=== PATIENT | female | born 1970 | race Caucasian/White ===

== ENCOUNTER 2017-05-17 11:14 | Inpatient (IN) | payer BC ==
[2017-05-17] VITALS (14 sets, daily range): BP systolic 73–125; BP diastolic 46–75
[~2017-05-17] VITALS: Ht 170.2 cm; Wt 64.0 kg
[2017-05-17 11:49] LABS: HEMATOCRIT 43.3 % (37.0-47.0); HEMOGLOBIN 14.4 gm/dL (12.0-15.0); MCH 29.1 pg (26.0-34.0); MCHC 33.2 g/dL (28.0-37.0); MCV 87.5 fL (80.0-100.0); RBC 4.95 mil/uL (4.20-5.00); RDW 13.6 % (10.5-14.5); WBC 6.1 thou/uL (4.0-11.0)
[2017-05-17 11:58] LABS: ANION GAP 7 mmol/L (7-16); BUN 15 mg/dL (7-18); CALCIUM 9.2 mg/dL (8.5-10.1); CHLORIDE 102 mmol/L (98-107); CO2 28 mmol/L (21-32); CREATININE 0.8 mg/dL (0.6-1.0); GLUCOSE 108 mg/dL (74-106); POTASSIUM 4.3 mmol/L (3.5-5.1); SALICYLATE < 2.8 mg/dL (2.8-20.0); SODIUM 137 mmol/L (136-145)
[2017-05-17 13:01] LABS: URINE BILIRUBIN NEGATIVE (Negative); URINE BLOOD NEGATIVE (Negative); URINE COLOR YELLOW; URINE GLUCOSE-RANDOM* NEGATIVE (Negative); URINE KETONES NEGATIVE (Negative); URINE LEUKOCYTES-REFLEX 1+ (Negative); URINE PROTEIN (DIPSTICK) NEGATIVE (Negative); URINE SPECIFIC GRAVITY <= 1.005 (1.003-1.035); URINE UROBILINOGEN 0.2 E.U./dl (0.2-1.0)
[2017-05-17 13:09] LABS: AMP/METHAMP Negative (Negative); BARBITURATES Negative (Negative); BENZODIAZEPINES POSITIVE (Negative); COCAINE Negative (Negative); METHADONE Negative (Negative); OPIATES Negative (Negative); PCP Negative (Negative); THC Negative (Negative)
[2017-05-17 13:21] LABS: SQUAMOUS 0-3 Few /LPF (0-3)
[2017-05-17 13:22] LABS: CASTS None Seen /LPF (None Seen); CRYSTALS None Seen /LPF (None Seen); URINE RBC 0-2 Rare /HPF (0-2); URINE WBC-REFLEX None Seen /HPF (0-5)
[2017-05-18] VITALS (20 sets, daily range): BP systolic 86–130; BP diastolic 47–89
[2017-05-18] MEDS ORDERED: CYMBALTA60 MG PO (07:35)
[2017-05-18] MEDS ORDERED: LAMICTAL100 MG PO ×2 (07:35→07:36)
[2017-05-18] MEDS ORDERED: WELLBUTRIN XL150 MG PO (07:35)
[2017-05-18 20:10] LABS: TRICYCLIC (TCA) CONFIRMATION Negative ng/mL (Cutoff=100)
[2017-05-19] VITALS (9 sets, daily range): BP systolic 86–118; BP diastolic 47–78
[2017-05-19] MEDS ORDERED: TRAZODONE HCL100 MG PO (09:51)
== END 2017-05-19 13:15 | DRG 918 ==
LOC: ER 11:14 → EROBS 13:26 → ICU 13:26
PROVIDERS: Emergency Medicine
DX: T42.4X2A Poisoning by benzodiazepines, intentional self-harm, initial encounter (principal); F31.9 Bipolar disorder, unspecified; Y92.89 Other specified places as the place of occurrence of the external cause; Z85.3 Personal history of malignant neoplasm of breast